=== PATIENT | female | born 1990 | race African-American/Black ===

== ENCOUNTER 2017-06-24 18:13 | Emergency (ER) | payer OTHER ==
[2017-06-24 18:25] VITALS: BP 124/71; PULSE 62; TEMP 98.4; BMI 25.2
[2017-06-24] MEDS ORDERED: diphenhydrAMINE HCL 25 MG CAPSULE (FP) PO ONE ×3 (19:12→19:23)
--- NOTE | 2017-06-24 19:18 | PDOC ---
History of Present Illness - General Chief Complaint: Allergic Reaction Stated Complaint: ALLERGIES Time Seen by Provider: 06/24/17 19:03 History Source: Patient Exam Limitations: No Limitations - History of Present Illness Initial Comments: 06/24/17 19:15 27 yr female states she was at work today when she touched salad dressing in her hands and broke out in a rash. Pt has no SOb no diff swallowing or breathing. Past History - Past Medical History Allergies/Adverse Reactions: Allergies Allergy/AdvReac Type Severity Reaction Status Date / Time No Known Drug Allergies Allergy Verified 06/24/17 18:25 seafood Allergy Severe Swelling Uncoded 06/24/17 18:25 Home Medications: Ambulatory Orders NK [No Known Home Medication] 06/24/17 Asthma: Yes Cancer: No Cardiac Disorders: No Diabetes: No HTN: No Seizures: No Thyroid Disease: No - Reproductive History (#): 3 Para: 2 Cervical CA: No Dysfunctional Uterine Bleeding: No Ectopic : No Endometrial CA: No Polycystic Ovaries: No Therapeutic (s) & number: Yes Tubal Ligation: No Spontaneous : 0 - Immunization History Td Vaccination: Yes TDAP Vaccination: Yes Immunization Up to Date: Yes - Suicide/Smoking/Psychosocial Hx Smoking Status: No Smoking History: Never smoked Have you smoked in the past 12 months: No Number of Cigarettes Smoked Daily: 0 Information on smoking cessation initiated: No Hx Alcohol Use: No Drug/Substance Use Hx: No Substance Use Type: None Hx Substance Use Treatment: No *Physical Exam - Vital Signs Last Vital Signs Temp Pulse Resp BP Pulse Ox 98.4 F 62 18 124/71 100 06/24/17 18:20 06/24/17 18:20 06/24/17 18:20 06/24/17 18:20 06/24/17 18:20 - Physical Exam General Appearance: Yes: Nourished, Appropriately Dressed HEENT: positive: EOMI, MARTIN, Normal ENT Inspection, TMs Normal, Pharynx Normal Neck: positive: Supple. negative: Tender Respiratory/Chest: positive: Lungs Clear, Normal Breath Sounds. negative: Wheezing Cardiovascular: positive: Regular Rhythm, Regular Rate Gastrointestinal/Abdominal: positive: Normal Bowel Sounds, Soft Musculoskeletal: positive: Normal Inspection Extremity: positive: Normal Capillary Refill, Normal Inspection, Normal Range of Motion Integumentary: positive: Normal Color, Dry, Warm, Other (left inner forearm with one hive 1cm in diameter) Neurologic: positive: magistrate II-XII NML intact, Fully Oriented, Alert, Normal Mood/ Affect, Normal Response, Motor Strength 5 Medical Decision Making - Medical Decision Making 06/24/17 19:17 cc: hives after touching salad dressing at work without wearing gloves. Pt states "I am not allowed to wear gloves" and [place]" pt has no SOB no diff swallowing or speaking will give benadryl now pt has one hive to the left inner forearm 1cm in diameter. will dc home to ENT follow up pt agrees with the plan of care *DC/Admit/Observation/Transfer Diagnosis at time of Disposition: Hives - Discharge Dispostion Disposition: HOME Condition at time of disposition: Good - Patient Instructions Additional Instructions: cool water to the hands and arms take over the counter benadryl as directed for itching you can get the store brand for benadryl follow with the account assistant next week if not improving or worse call to make appointment
== END 2017-06-24 19:55 | disposition home or self-care (01) ==
LOC: JERFT 18:13 → JER 18:13 → JERFT 19:55
DX: L50.0 Allergic urticaria (principal); T78.49XA Other allergy, initial encounter; X58.XXXA Exposure to other specified factors, initial encounter; Y92.511 Restaurant or cafe as the place of occurrence of the external cause; Y93.G1 Activity, food preparation and clean up; Y99.0 Civilian activity done for income or pay
CPT/HCPCS: 99281-25

== ENCOUNTER 2018-02-12 20:54 | Emergency (ER) | payer OTHER ==
[2018-02-12 21:07] VITALS: BP 112/76; PULSE 74; TEMP 98.4; BMI 25.7
--- NOTE | 2018-02-12 21:10 | PDOC ---
Rapid Medical Evaluation Time Seen by Provider: 02/12/18 21:03 Medical Evaluation: Allergies Allergy/AdvReac Type Severity Reaction Status Date / Time No Known Drug Allergies Allergy Verified 12/15/17 15:05 seafood Allergy Severe Swelling Uncoded 12/15/17 15:05 02/12/18 21:04 I have performed a brief in-person evaluation of this patient. The patient presents with a chief complaint of: + vag bleeding and cramping since AM, spotting, noted plug. no fevers LMP 01/01/18. Grav 5, Para 2 Ab1, Misc 1 - 2 HOME PREGNAcY TEST NEG , sTATES Blood tyPE a+ Pertinent physical exam findings: tender left mid quad, LLQ I have ordered the following: Ua, cbc, bHcg, tYPE AND SCREEN , cmp The patient will proceed to the ED for further evaluation.
[2018-02-12 22:10] LABS: BASO % 0.8 % (0-2.0); EOS % 1.6 % (0-4.5); HEMATOCRIT 35.9 % (32.4-45.2); HEMOGLOBIN 11.9 GM/dL (10.7-15.3); LYMPH % 35.8 % (8-40); MCH 29.2 pg (25.7-33.7); MCHC 33.2 g/dl (32.0-36.0); MEAN CELL VOLUME 87.9 fl (80-96); MEAN PLT VOLUME 9.1 fl (7.5-11.1); MONO % 7.5 % (3.8-10.2); NEUT % 54.3 % (42.8-82.8); PLATELET COUNT 269 K/MM3 (134-434); RBC 4.09 M/mm3 (3.60-5.2); RDW 13.3 % (11.6-15.6); WHITE BLOOD COUNT 8.5 K/mm3 (4.0-10.0)
[2018-02-12 22:11] LABS: ALBUMIN 3.8 g/dl (3.4-5.0); ALK PHOS 73 U/L (45-117); ANION GAP 6 (8-16); BILIRUBIN,TOTAL 0.4 mg/dL (0.2-1.0); BLOOD UREA NITROGEN 13 mg/dL (7-18); CALCIUM 8.3 mg/dL (8.5-10.1); CHLORIDE 105 mmol/L (98-107); CO2 30 mmol/L (21-32); CREATININE 0.8 mg/dL (0.55-1.02); GLUCOSE,RANDOM 96 mg/dL (74-106); SGOT/AST 16 U/L (15-37); SGPT/ALT 21 U/L (12-78); SODIUM 141 mmol/L (136-145); TOT PROT 7.7 g/dl (6.4-8.2)
--- NOTE | 2018-02-12 23:34 | PDOC ---
History of Present Illness <Esdras Nixon - Last Filed: 02/12/18 23:34> - General History Source: Patient Exam Limitations: No Limitations - History of Present Illness Initial Comments: 02/13/18 00:45 The patient is a 27 year old female with a significant PMH of anxiety and depression who presents to the emergency department with irregular vaginal bleeding earlier today. The patient reports that she had taken a positive at home test recently. The patient states that she was concerned for a miscarriage. The patient reports experiencing associated vaginal spotting and abdominal cramping . it is noted that the patient is . the patient denies any other symptoms. She denies any dysuria, urinary frequency, urgency and hematuria. She denies fever, chills, nausea, vomit, diarrhea and constipation. The patient denies any chest pain, shortness of breath, headache and dizziness. The patient denies any other complaints. <Pat Sánchez - Last Filed: 02/13/18 00:47> - General Chief Complaint: Vaginal Bleeding Stated Complaint: VAGINAL BLEEDING (POSSIBLY ) Time Seen by Provider: 02/12/18 21:03 Past History - Past Medical History Asthma: No Cancer: No Cardiac Disorders: No COPD: No Diabetes: No HTN: No Seizures: Yes Thyroid Disease: No - Reproductive History (#): 3 Para: 2 Cervical CA: No Dysfunctional Uterine Bleeding: No Ectopic : No Endometrial CA: No Polycystic Ovaries: No Therapeutic (s) & number: Yes Tubal Ligation: No Spontaneous : 0 - Immunization History Td Vaccination: Yes TDAP Vaccination: Yes Immunization Up to Date: Yes - Suicide/Smoking/Psychosocial Hx Smoking Status: No Smoking History: Never smoked Have you smoked in the past 12 months: No Number of Cigarettes Smoked Daily: 0 Hx Alcohol Use: No Drug/Substance Use Hx: No Substance Use Type: None Hx Substance Use Treatment: No <Esdras Nixon - Last Filed: 02/12/18 23:34> <Pat Sánchez - Last Filed: 02/13/18 00:47> - Past Medical History Allergies/Adverse Reactions: Allergies Allergy/AdvReac Type Severity Reaction Status Date / Time No Known Drug Allergies Allergy Verified 02/12/18 21:05 seafood Allergy Severe Swelling Uncoded 02/12/18 21:05 Home Medications: Ambulatory Orders Haloperidol [Haldol -] 5 mg PO BID 12/15/17 Ibuprofen 600 mg PO Q6H #15 tablet 12/15/17 Review of Systems - Review of Systems Able to Perform ROS?: Yes Comments:: 02/13/18 00:45 Constitutional: No recent illness; no fever ENT: No sore throat Cardiovascular: No palpitations; no chest pain Pulmonary: No cough; no trouble breathing Gastrointestinal:(+)abdominal cramping.No nausea; no vomiting; no diarrhea Genitourinary:(+) irregular vaginal bleeding. No urinary problems; no hematuria Skin: No rash Lymph system: No swollen glands Musculoskeletal: No joint swelling Neurological: No weakness; oo numbness; No Headache; no vertigo; no lightheadedness Psychiatric:No anxiety; no depression ROS: A complete review of 10 out of 10 review of systems is taken and is negative apart from what is previously mentioned below and in the HPI. <Pat Sánchez - Last Filed: 02/13/18 00:47> *Physical Exam - Vital Signs Last Vital Signs Temp Pulse Resp BP Pulse Ox 98.4 F 74 18 112/76 99 02/12/18 21:05 02/12/18 21:05 02/12/18 21:05 02/12/18 21:05 02/12/18 21:05 <Esdras Nixon - Last Filed: 02/12/18 23:34> - Vital Signs Last Vital Signs Temp Pulse Resp BP Pulse Ox 98.4 F 74 18 112/76 99 02/12/18 21:05 02/12/18 21:05 02/12/18 21:05 02/12/18 21:05 02/12/18 21:05 - Physical Exam Comments: 02/13/18 00:46 Vitals: Triage vital signs reviewed General Appearance: No acute distress, well nourished, well developed Chest Wall: Nontender Cardiac: Regular rate and rhythm, no murmurs, no rubs, no gallops Lungs: Clear to auscultation bilateral, good air movement bilaterally Abdomen: Soft belly , nondistended, normal bowel sounds, nontender to palpation Genitourinary: Rectal: Exam deferred Extremities: Full range of motion to all extremities, no cyanosis, clubbing, or edema Skin: Warm and dry, no rashes or lesions, no rash, no petechiae Psych: Normal mood, normal affect <Pat Sánchez - Last Filed: 02/13/18 00:47> ED Treatment Course - LABORATORY CBC & Chemistry Diagram: 02/12/18 21:36 02/12/18 21:36 - ADDITIONAL ORDERS Additional order review: Laboratory Results 02/12/18 02/12/18 02/12/18 21:36 21:36 21:36 Sodium 141 Potassium 4.0 Chloride 105 Carbon Dioxide 30 Anion Gap 6 L BUN 13 Creatinine 0.8 Creat Clearance w eGFR > 60 Random Glucose 96 Calcium 8.3 L Total Bilirubin 0.4 D AST 16 ALT 21 Alkaline Phosphatase 73 Total Protein 7.7 Albumin 3.8 Urine HCG, Qual Negative Blood Type A POSITIVE Antibody Screen Negative 02/12/18 21:36 RBC 4.09 MCV 87.9 MCHC 33.2 RDW 13.3 MPV 9.1 D Neutrophils % 54.3 Lymphocytes % 35.8 Monocytes % 7.5 Eosinophils % 1.6 Basophils % 0.8 <Esdras Nixon - Last Filed: 02/12/18 23:34> - LABORATORY CBC & Chemistry Diagram: 02/12/18 21:36 02/12/18 21:36 - ADDITIONAL ORDERS Additional order review: Laboratory Results 02/12/18 02/12/18 02/12/18 21:36 21:36 21:36 Sodium 141 Potassium 4.0 Chloride 105 Carbon Dioxide 30 Anion Gap 6 L BUN 13 Creatinine 0.8 Creat Clearance w eGFR > 60 Random Glucose 96 Calcium 8.3 L Total Bilirubin 0.4 D AST 16 ALT 21 Alkaline Phosphatase 73 Total Protein 7.7 Albumin 3.8 Urine HCG, Qual Negative Blood Type A POSITIVE Antibody Screen Negative 02/12/18 21:36 RBC 4.09 MCV 87.9 MCHC 33.2 RDW 13.3 MPV 9.1 D Neutrophils % 54.3 Lymphocytes % 35.8 Monocytes % 7.5 Eosinophils % 1.6 Basophils % 0.8 <Pat Sánchez - Last Filed: 02/13/18 00:47> Medical Decision Making - Medical Decision Making 02/12/18 23:36 last menstrual period January 01 concerned for miscarriage given bleeding today spotting with some cramping Laboratory analysis demonstrates the patient is not . Labs within normal limits. Patient well-appearing no apparent distress benign abdominal examination deferred pelvic examination Patient advised to follow-up with her QUALITATIVE FIELD COORDINATOR this week to have status recheck she was instructed to return to the emergency department for any fever severe abdominal pain or for any concerns Findings, the need for follow-up, strict return instructions discussed with patient. <Esdras Nixon - Last Filed: 02/12/18 23:34> - Medical Decision Making 02/13/18 00:46 The patient is a 27 year old female with a significant PMH of anxiety and depression who presents to the emergency department with irregular vaginal bleeding earlier today. The patient reports that she had taken a positive at home test recently. The patient states that she was concerned for a miscarriage. The patient reports experiencing associated vaginal spotting and abdominal cramping . it is noted that the patient is . the patient denies any other symptoms. She denies any dysuria, urinary frequency, urgency and hematuria. She denies fever, chills, nausea, vomit, diarrhea and constipation. The patient denies any chest pain, shortness of breath, headache and dizziness. The patient denies any other complaints. <Pat Sánchez - Last Filed: 02/13/18 00:47> *DC/Admit/Observation/Transfer - Discharge Dispostion Decision to Admit order: No <Esdras Nixon - Last Filed: 02/12/18 23:34> <Pat Sánchez - Last Filed: 02/13/18 00:47> Diagnosis at time of Disposition: Irregular menses - Discharge Dispostion Disposition: HOME Condition at time of disposition: Good - Referrals Referrals: Eliceo Garcia MD, MD [Primary Care Provider] - - Patient Instructions Printed Discharge Instructions: Dysmenorrhea (Alternative Therapy) Additional Instructions: Follow up with your OBGYN in 2-3 days. Return to the ED for any fever, severe worsening symptoms or for any concerns - Post Discharge Activity
== END 2018-02-13 00:15 | disposition home or self-care (01) ==
LOC: JER 20:54
DX: N92.5 Other specified irregular menstruation (principal); F41.9 Anxiety disorder, unspecified; F32.9 Major depressive disorder, single episode, unspecified
CPT/HCPCS: 36415; 80053; 84703; 85025; 86850; 86900; 86901; 99281-25

== ENCOUNTER 2021-08-10 07:30 | Emergency (ER) | payer OTHER ==
[2021-08-10 07:57] VITALS: TEMP 97.9; BMI 27.8
[2021-08-10] MEDS ORDERED: MECLIZINE HCL 25 MG TABLET (FP) PO ONE (08:45)
[2021-08-10] MEDS ORDERED: SODIUM CHLORIDE 0.9% 500 ML INFUS.BAG IV ONE (08:45)
[2021-08-10] MEDS ORDERED: ACETAMINOPHEN 1000 MG/100 ML VIAL IVPB ONE (08:47)
[2021-08-10] MEDS ORDERED: MECLIZINE HCL 25 MG TABLET (FP) ONE (08:56)
[2021-08-10] MEDS ORDERED: ACETAMINOPHEN INJECTION 100 ML IVPB ONE (08:57)
[2021-08-10 09:43] LABS: BASO % 0.7 % (0-2.0); EOS % 2.9 % (0-4.5); HEMATOCRIT 34.7 % (32.4-45.2); HEMOGLOBIN 11.8 GM/dL (10.7-15.3); LYMPH % 36.5 % (8-40); MCH 29.1 pg (25.7-33.7); MCHC 33.9 g/dl (32.0-36.0); MEAN CELL VOLUME 85.8 fl (80-96); MEAN PLT VOLUME 8.3 fl (7.5-11.1); NEUT % 53.9 % (42.8-82.8); PLATELET COUNT 311 10^3/uL (134-434); RBC 4.04 M/mm3 (3.60-5.2); RDW 13.4 % (11.6-15.6); WHITE BLOOD COUNT 8.9 K/mm3 (4.0-10.0)
[2021-08-10 10:02] LABS: CHLORIDE 107 mmol/L (98-107); SODIUM 142 mmol/L (136-145)
[2021-08-10 10:04] LABS: ALBUMIN 3.2 g/dl (3.4-5.0); ANION GAP 8 MMOL/L (8-16); BLOOD UREA NITROGEN 9.4 mg/dL (7-18); CALCIUM 8.4 mg/dL (8.5-10.1); CO2 27 mmol/L (21-32)
[2021-08-10 10:05] LABS: GLUCOSE,RANDOM 83 mg/dL (74-106); MAGNESIUM 1.9 mg/dL (1.8-2.4)
[2021-08-10 10:07] LABS: CREATININE 0.7 mg/dL (0.55-1.3); SGPT/ALT 21 U/L (13-61)
[2021-08-10 10:08] LABS: SGOT/AST 25 U/L (15-37)
[2021-08-10 10:09] LABS: BILIRUBIN,TOTAL 1.4 mg/dL (0.2-1); TOT PROT 7.1 g/dl (6.4-8.2)
[2021-08-10 10:10] LABS: ALK PHOS 65 U/L (45-117)
[2021-08-10 12:11] VITALS: BP 122/74; PULSE 74
[2021-08-10 13:30] LABS: URINE APPEARANCE CLEAR; URINE BILIRUBIN NEGATIVE (NEGATIVE); URINE COLOR DK YELLOW; URINE GLUCOSE (UA) NEGATIVE (NEGATIVE); URINE KETONE 3+ (NEGATIVE); URINE LEUK ESTERASE NEGATIVE (NEGATIVE); URINE NITRITE NEGATIVE (NEGATIVE); URINE PROTEIN NEGATIVE (NEGATIVE)
[2021-08-10 13:33] LABS: HCG,QUALITATIVE URINE Negative
== END 2021-08-10 12:05 | disposition home or self-care (01) ==
LOC: JER 07:30
PROC: 3E0333Z Introduction of Anti-inflammatory into Peripheral Vein, Percutaneous Approach (ICD-10-PCS; principal; 2021-08-10)
DX: H81.93 Unspecified disorder of vestibular function, bilateral (principal)
CPT/HCPCS: 36415; 70450-TC; 71045-TC-FY; 80053; 81003; 82550; 82553; 83735; 84443; 84484; 84703; 85025; 87086; 87186; 93005; 93010; 99285-25; J0131

== ENCOUNTER 2022-01-07 10:30 | Emergency (ER) | payer OTHER ==
[2022-01-07 10:45] VITALS: BP 117/81; PULSE 93; TEMP 98.3; BMI 29.7
[2022-01-07] MEDS ORDERED: ALBUTEROL SO4 2.5/IPRATROPIUM 0.5 INH SOL 3 ML VIAL.NEB. NEB ONE ×3 (10:52→11:34)
[2022-01-07] MEDS ORDERED: ALBUTEROL SO4 0.083% IH SOL 2.5 MG/3 ML VIAL.NEB. NEB ONE ×2 (11:12→11:35)
[2022-01-07] MEDS ORDERED: MAGNESIUM SULF 50% (8.12 MEQ/2 ML-1 GM VIAL) IVPB ONE (12:48)
[2022-01-07] MEDS ORDERED: MAGNESIUM SULFATE IN WATER 2 GM/50 ML IVPB IVPB ONE (14:22)
[2022-01-08 22:06] LABS: SARS-CoV-2 NAA Not Detected (Not Detected)
== END 2022-01-07 15:30 | disposition home or self-care (01) ==
LOC: JER 10:30
PROC: 3E033GC Introduction of Other Therapeutic Substance into Peripheral Vein, Percutaneous Approach (ICD-10-PCS; principal; 2022-01-07)
PROC: 3E0F7GC Introduction of Other Therapeutic Substance into Respiratory Tract, Via Natural or Artificial Opening (ICD-10-PCS; 2022-01-07)
DX: O99.511 Diseases of the respiratory system complicating pregnancy, first trimester (principal); J45.901 Unspecified asthma with (acute) exacerbation; Z3A.10 10 weeks gestation of pregnancy
CPT/HCPCS: 87804; 99284-25; C9803-CS; U0003; U0005

== ENCOUNTER 2025-04-13 12:13 | Emergency (ER) | payer OTHER ==
[2025-04-13 12:20] VITALS: RESP 18; TEMP 98.1; BMI 22.8
[2025-04-13] MEDS: ACETAMINOPHEN 1000 MG/100 ML BAG IVPB ONE (13:15)
[2025-04-13] MEDS ORDERED: ACETAMINOPHEN INJECTION 100 ML ONE (13:16)
[2025-04-13] MEDS: SODIUM CHLORIDE 0.9% 500 ML INFUS.BAG IV ONE (13:16)
[2025-04-13 13:26] LABS: ABSOLUTE IMMATURE GRANULOCYTES 0.02 x10^3/uL (0.0-0.031); BASOPHILS # 0.06 x10^3/uL (0.01-0.08); EOSINOPHIL % 0.4 % (0.7-5.8); EOSINOPHILS # 0.05 x10^3/uL (0.04-0.36); MCHC 31.5 g/dl (32.2-35.5); MEAN CELL VOLUME 88.7 fl (79.4-94.8); MEAN PLT VOLUME 10.6 fl (9.4-12.3); MONOCYTE # 0.64 x10^3/uL (0.24-0.86); MONOCYTE % 5.5 % (4.7-12.5); RDW 13.4 % (12.1-16.8)
[2025-04-13 13:49] LABS: CO2 26.0 mmol/L (21-32); GLUCOSE,RANDOM 102.0 mg/dL (74-106)
[2025-04-13 13:52] LABS: SGOT/AST 18.0 U/L (15-37); SGPT/ALT 20.0 U/L (13-61)
[2025-04-13 13:55] LABS: ALK PHOS 58.0 U/L (45-117); CREATININE 0.7 mg/dL (0.55-1.3); TOT PROT 7.0 g/dl (6.4-8.2)
[2025-04-13 14:55] LABS: HIV INTERPRETATION NEGATIVE (NEGATIVE)
[2025-04-13] MEDS ORDERED: METOCLOPRAMIDE HCL INJECTION 10 MG/2 ML VIAL ONE (15:29)
[2025-04-13] MEDS ORDERED: KETOROLAC TROMETHAMINE 15 MG/ML VIAL ONE (15:30)
[2025-04-13] MEDS: KETOROLAC TROMETHAMINE 15 MG/ML VIAL IVPUSH ONE (15:56)
[2025-04-13] MEDS: METOCLOPRAMIDE HCL INJECTION 10 MG/2 ML VIAL IVPUSH ONE (15:56)
[2025-04-13 16:09] VITALS: BP 113/81; PULSE 71
[2025-04-14 20:46] LABS: HCV DIAGNOSTIC IN-HOUSE W/RFLX NON-REACTIVE (NONREACTIVE)
== END 2025-04-13 17:05 | disposition home or self-care (01) ==
LOC: JER 12:13
PROC: 3E033NZ Introduction of Analgesics, Hypnotics, Sedatives into Peripheral Vein, Percutaneous Approach (ICD-10-PCS; principal; 2025-04-13)
PROC: 3E0333Z Introduction of Anti-inflammatory into Peripheral Vein, Percutaneous Approach (ICD-10-PCS; 2025-04-13)
PROC: 3E033GC Introduction of Other Therapeutic Substance into Peripheral Vein, Percutaneous Approach (ICD-10-PCS; 2025-04-13)
DX: G43.909 Migraine, unspecified, not intractable, without status migrainosus (principal); M25.511 Pain in right shoulder; M79.651 Pain in right thigh; R07.89 Other chest pain; R55 Syncope and collapse; R42 Dizziness and giddiness; R20.0 Anesthesia of skin; R20.2 Paresthesia of skin; R06.02 Shortness of breath; W01.198A Fall on same level from slipping, tripping and stumbling with subsequent striking against other object, initial encounter
CPT/HCPCS: 36415; 70450-TC; 71045-TC-FY; 72125-TC; 72170-TC-FY; 73030-TC-RT-FY; 73552-TC-RT-FY; 80053; 82962; 83735; 84484; 84703; 85025; 86803; 87389; 93005; 93010; 99285-25